=== PATIENT | male | born 1995 | race Caucasian/White ===

== ENCOUNTER 2017-02-17 12:36 | Emergency (ER) | payer OTHER ==
[~2017-02-17] VITALS: Ht 167.6 cm; Wt 104.3 kg
[2017-02-17 12:46] VITALS: BP_SYST 136
--- NOTE | 2017-02-17 13:01 | NUR ---
Pt placed in [facility]
--- NOTE | 2017-02-17 13:16 | NUR ---
ER СЕРГЕЙ Rao at bedside examining patient.
[2017-02-17] MEDS ORDERED: CYCLOBENZAPRINE HCL 10 MG TABLET (FLEXERIL) PO ONE (13:30)
[2017-02-17] MEDS ORDERED: KETOROLAC TROMETHAMINE 60 MG/2 ML VIAL IM ONE (13:30)
[2017-02-17 13:54] VITALS: BP_SYST 125
--- NOTE | 2017-02-17 13:54 | NUR ---
Patient given written and verbal discharge instructions and verbalizes understanding. ER MD discussed with patient the results and treatment provided. Patient in stable condition. ID arm band removed. Rx of tramadol given. Patient educated on pain management and to follow up with PMD. Pain Scale 3. Dr Castillo is aware, prescription sent home with pt. Opportunity for questions provided and answered.
== END 2017-02-17 13:54 | disposition home or self-care (01) ==
LOC: SED 12:36
DX: S39.012A Strain of muscle, fascia and tendon of lower back, initial encounter (principal); X58.XXXA Exposure to other specified factors, initial encounter; Y93.89 Activity, other specified; Y92.89 Other specified places as the place of occurrence of the external cause; Y99.8 Other external cause status; R03.0 Elevated blood-pressure reading, without diagnosis of hypertension
CPT/HCPCS: 72100; 96372; 99284; J1885